=== PATIENT | male | born 1960 | race Caucasian/White ===

== ENCOUNTER 2016-12-11 21:25 | Emergency (ER) | payer BC ==
[2016-12-11 19:25] LABS: BASOPHILS 0.8 %; BASOPHILS ABSOLUTE 0.07 10/3/uL (0.0-0.16); EOSINOPHILS 3.3 %; HEMATOCRIT 36.6 % (40.0-51.0); HEMOGLOBIN 12.7 g/dL (13.6-17.8); IMMATURE GRANULOCYTES 0.2 %; IMMATURE GRANULOCYTES ABSOLUTE 0.02 10/3/uL (0.0-0.11); LYMPHOCYTES 24.4 %; LYMPHOCYTES ABSOLUTE 2.25 10/3/uL (0.67-4.30); MEAN CORPUS HGB CONC 34.7 g/dL (32.0-36.0); MEAN CORPUSCULAR HEMOGLOB 30.8 pg (26.0-34.0); MEAN CORPUSCULAR VOLUME 88.8 fL (80-100); MEAN PLATELET VOLUME 9.5 fL (9.2-13.0); MONOCYTES 8.4 %; MONOCYTES ABSOLUTE 0.77 10/3/uL (0.21-1.20); NEUTROPHILS 62.9 %; PLATELET COUNT 137 10/3/uL (150-400); RED CELL COUNT 4.12 10/6/uL (4.7-6.1); WHITE BLOOD CELLS 9.2 10/3/uL (4.5-10.5)
[2016-12-11 19:26] LABS: MANUAL DIFF NO %
[2016-12-11 19:33] LABS: INTERNATIONAL NORMAL RATI 2.3 UNITS (-); PARTIAL THROMBO TIME 45.6 SEC (22.5-37.2)
[2016-12-11 19:35] LABS: PROTIME (NOT ORD) 24.8 SEC (12.0-14.5)
[2016-12-11 19:46] LABS: ALBUMIN 3.5 G/DL (3.5-5.0); ALKALINE PHOSPHATASE 48 U/L (45-117); BUN (BLOOD UREA NITROGEN) 12 MG/DL (6-23); CALCIUM, SERUM 8.4 MG/DL (8.5-10.4); CHEST PAIN PROFILE TAT 0 Hrs 25 Mins; CHLORIDE, SERUM 106 MMOL/L (96-112); CO2 (CARBON DIOXIDE) 26 MMOL/L (24-34); CPK (IF ELEVATED MB BANDS) 188 U/L (0-200); CREATININE 1.13 MG/DL (0.70-1.30); DIRECT BILIRUBIN 0.2 MG/DL (0.0-0.4); GFR AFRICAN AMERICAN 83 ML/MIN (>=60); GFR NON AFRICAN AMERICAN 71 ML/MIN (>=60); GLUCOSE, SERUM 85 MG/DL (60-99); INDIRECT BILIRUBIN(NOT ORDER) 0.9 MG/DL (0.1-0.9); POTASSIUM, SERUM 3.8 MMOL/L (3.5-5.3); SGOT(AST) 29 U/L (5-40); SGPT(ALT) 34 U/L (5-65); SODIUM, SERUM 141 MMOL/L (135-148); TOTAL BILIRUBIN 1.1 MG/DL (0-1.2); TOTAL PROTEIN 6.9 G/DL (6.0-8.5); TROPONIN I <0.02 NG/ML (<0.05)
[2016-12-11 20:15] LABS: ASCORBIC ACID (UR NOT ORDER) NEG (NEG); BILIRUBIN, URINE NEGATIVE (NEG); ER URINALYSIS TAT 0 Hrs 00 Mins; KETONE, URINE NEGATIVE (NEG); LEUKOCYTE ESTERASE(NOT OR LARGE (NEG); NITRITE (URINE) NEG (NEG); WBC (NOT ORDERED) (RFLEX) > 182 (0-5)
[2016-12-11 20:22] LABS: INFLUENZA A SCREEN NEGATIVE (NEGATIVE); INFLUENZA B SCREEN NEGATIVE (NEGATIVE)
[~2016-12-11 21:25] MED LIST: AMB5 PO; ASAB PO; C5 PO; CORDARONE PO; COUMADIN4 MG PO; COUMADIN6 MG PO; EZFE 200200 MG PO; HALF81 PO; K500 PO; LIPITOR40 PO; LOP25 PO; PRIN10 PO; PRIN5 PO; TYLENOL PM PO; ULTRAM50 PO
[2016-12-15] MEDS ORDERED: C1 PO (01:37)
[2016-12-15] MEDS ORDERED: COUMADIN7.5 MG PO (01:37)
[2016-12-15] MEDS ORDERED: LIPITOR10 PO (01:38)
[2016-12-15] MEDS ORDERED: LOP25 PO (01:38)
[2016-12-15] MEDS ORDERED: PRIN10 PO (01:39)
[2016-12-15] MEDS ORDERED: ASAB PO (01:39)
[2016-12-15] MEDS ORDERED: NORCO1 TA2 PO (01:40)
[2016-12-15] MEDS ORDERED: CIP5 PO (01:42)
[2016-12-15] MEDS ORDERED: ZOFRANODT8 PO/SL (01:43)
== END 2016-12-12 01:31 | disposition home or self-care (01) ==
LOC: ER 21:25
PROVIDERS: Nurse Practitioner
DX: N41.0 Acute prostatitis (principal); N43.3 Hydrocele, unspecified; Z79.01 Long term (current) use of anticoagulants; I10 Essential (primary) hypertension; K21.9 Gastro-esophageal reflux disease without esophagitis; Z87.01 Personal history of pneumonia (recurrent); Z87.891 Personal history of nicotine dependence; Z87.440 Personal history of urinary (tract) infections; Z88.1 Allergy status to other antibiotic agents; Z88.0 Allergy status to penicillin; Z79.82 Long term (current) use of aspirin; Z79.899 Other long term (current) drug therapy
CPT/HCPCS: 74176; 76870; 80048; 80076; 81001; 82550; 83605; 83735; 84484; 85025; 85610; 85730; 87040; 87077; 87086; 87186; 87804; 93005; 96374; 96375; 96376; 99285; A9270-GY; J1170; J1956; J2405